=== PATIENT | female | born 1995 | race African-American/Black ===

== ENCOUNTER 2022-09-14 01:47 | Emergency (ER) | payer OTHER ==
[~2022-09-14] VITALS: Ht 167.6 cm; Wt 82.1 kg
[2022-09-14] MEDS ORDERED: GNP28TAB2 PO (01:56)
[2022-09-14 02:46] LABS: BASO % 0.5 % (0.0-1.0); EOS # 0.1 10^3/uL (0.0-0.5); EOS % 1.5 % (0.0-3.0); HEMATOCRIT 35.9 % (36.0-47.0); HEMOGLOBIN 11.8 g/dl (12.0-15.5); LYMPH # 2.3 10^3/uL (1.5-5.0); LYMPH % 26.7 % (24.0-44.0); MEAN CORPUSCULAR HEMOGLOBIN 27.7 pg (27.0-33.0); MEAN CORPUSCULAR HGB CONC 32.9 g/dl (32.0-36.5); MEAN CORPUSCULAR VOLUME 84.3 fl (80.0-96.0); MONO # 0.5 10^3/uL (0.0-0.8); MONO % 5.3 % (2.0-8.0); NEUTROPHILS # 5.6 10^3/uL (1.5-8.5); NEUTROPHILS % 65.8 % (36.0-66.0); PLATELET COUNT, AUTOMATED 344 10^3/uL (150-450); RED BLOOD COUNT 4.26 10^6/uL (4.00-5.40); WHITE BLOOD COUNT 8.5 10^3/uL (4.0-10.0)
[2022-09-14 03:12] LABS: BLOOD UREA NITROGEN 7 MG/DL (9-23); CALCIUM LEVEL 9.4 MG/DL (8.5-10.1); CARBON DIOXIDE LEVEL 23 MMOL/L (20-31); CHLORIDE LEVEL 103 MMOL/L (98-107); CREATININE FOR GFR 0.62 MG/DL (0.55-1.30); GLOMERULAR FILTRATION RATE > 60.0 (>60); GLUCOSE, FASTING 88 MG/DL (60-100); POTASSIUM SERUM 3.9 MMOL/L (3.5-5.1); SODIUM LEVEL 134 MMOL/L (136-145)
[2022-09-14 03:26] LABS: HCG, SERUM QUANTITATIVE 74053.6 MIU/ML (<4.2)
[2022-09-14 08:45] VITALS: BP 116/70
== END 2022-09-14 08:50 | disposition home or self-care (01) ==
LOC: M ED 01:47
DX: O34.10 Maternal care for benign tumor of corpus uteri, unspecified trimester (principal); O20.0 Threatened abortion; Z3A.10 10 weeks gestation of pregnancy; Z79.84 Long term (current) use of oral hypoglycemic drugs

== ENCOUNTER 2022-10-11 16:21 | Inpatient (IN) | payer OTHER ==
[~2022-10-11] VITALS: Ht 167.6 cm; Wt 81.3 kg
[~2022-10-11 16:21] MED LIST: GNP28TAB2 PO
[2022-10-11 17:35] LABS: BASO % 0.3 % (0.0-1.0); EOS # 0.1 10^3/uL (0.0-0.5); EOS % 0.4 % (0.0-3.0); HEMATOCRIT 34.3 % (36.0-47.0); HEMOGLOBIN 11.2 g/dl (12.0-15.5); LYMPH # 2.4 10^3/uL (1.5-5.0); LYMPH % 16.8 % (24.0-44.0); MEAN CORPUSCULAR HEMOGLOBIN 27.9 pg (27.0-33.0); MEAN CORPUSCULAR HGB CONC 32.7 g/dl (32.0-36.5); MEAN CORPUSCULAR VOLUME 85.3 fl (80.0-96.0); MONO # 0.9 10^3/uL (0.0-0.8); MONO % 6.3 % (2.0-8.0); NEUTROPHILS # 10.8 10^3/uL (1.5-8.5); NEUTROPHILS % 75.7 % (36.0-66.0); PLATELET COUNT, AUTOMATED 388 10^3/uL (150-450); RED BLOOD COUNT 4.02 10^6/uL (4.00-5.40); WHITE BLOOD COUNT 14.2 10^3/uL (4.0-10.0)
[2022-10-11] MEDS ORDERED: MORPHINE 2 MG/ML 1ML VIAL IV ONE (17:50)
[2022-10-11 17:55] LABS: BLOOD UREA NITROGEN 7 MG/DL (9-23); CALCIUM LEVEL 9.2 MG/DL (8.5-10.1); CARBON DIOXIDE LEVEL 21 MMOL/L (20-31); CHLORIDE LEVEL 102 MMOL/L (98-107); CREATININE FOR GFR 0.58 MG/DL (0.55-1.30); GLOMERULAR FILTRATION RATE > 60.0 (>60); GLUCOSE, FASTING 106 MG/DL (60-100); POTASSIUM SERUM 3.6 MMOL/L (3.5-5.1); SODIUM LEVEL 134 MMOL/L (136-145)
[2022-10-11] MEDS ORDERED: CEFEPIME HCL 2 GM in D5W MINI-BAG PLUS 50 ML IV ONE (19:05)
[2022-10-11] MEDS ORDERED: metroNIDAZOLE 500 MG in IV 1 EA IV ONE (19:05)
[2022-10-11] MEDS ORDERED: NS 1,000 ML IV ONE (19:05)
[2022-10-11] MEDS ORDERED: HOME MED LIST COMPLETE! XX SCH (19:40)
[2022-10-11] MEDS ORDERED: MIDAZOLAM INJ 2MG/2ML VIAL As Ordered ONE (20:08)
[2022-10-11] MEDS ORDERED: ROCURONIUM BROMIDE 50MG/5ML VIAL As Ordered ONE (20:08)
[2022-10-11] MEDS ORDERED: fentaNYL 100 MCG/2 ML INJECTION As Ordered ONE ×2 (20:08→21:47)
[2022-10-11] MEDS ORDERED: propofoL 200 MG/20 ML VIAL As Ordered ONE (20:08)
[2022-10-11] MEDS ORDERED: LIDOCAINE 2% 100MG/5ML SDV (FOR ANES.) As Ordered ONE (20:08)
[2022-10-11] MEDS ORDERED: ONDANSETRON 4MG 2ML VIAL As Ordered ONE (20:08)
[2022-10-11] MEDS ORDERED: METHYLERGONOVINE MALEATE 0.2MG/ML 1ML VIAL As Ordered ONE (20:09)
[2022-10-11] MEDS ORDERED: CARBOPROST TROMETHAMINE 250 MCG/ML AMP As Ordered ONE (20:23)
[2022-10-11] MEDS ORDERED: LIDOCAINE 1% MDV 20ML VIAL As Ordered ONE (20:59)
[2022-10-11] MEDS ORDERED: ACETAMINOPHEN 1000MG 100ML IV BAG As Ordered ONE (21:08)
[2022-10-11] MEDS ORDERED: PHENYLephrine 500MCG 5ML (100MCG/ML) SYRINGE As Ordered ONE (21:25)
[2022-10-11] MEDS ORDERED: VASOPRESSIN INJ 20UNITS/ML 1ML VIAL As Ordered ONE (21:34)
[2022-10-11] MEDS ORDERED: HYDROMORPHONE HCL 0.5 MG/ 0.5 ML SYRINGE IV PRN (22:15)
[2022-10-11] MEDS ORDERED: LR 1,000 ML IV SCH ×2 (22:15→22:40)
[2022-10-11] MEDS ORDERED: METOCLOPRAMIDE INJ 10MG/2ML VIAL IV PRN (22:15)
[2022-10-11] MEDS ORDERED: fentaNYL 100 MCG/2 ML INJECTION IV PRN (22:15)
[2022-10-11] MEDS ORDERED: oxyCODONE 5MG TAB PO PRN (22:15)
[2022-10-11] MEDS ORDERED: PROMETHAZINE 25MG/ML 1ML VIAL IV PRN ×2 (22:15→23:20)
[2022-10-11] MEDS ORDERED: ONDANSETRON 4MG 2ML VIAL IV PRN ×2 (22:15→23:20)
[2022-10-11 23:21] VITALS: BP 129/66
[2022-10-11] MEDS: PIPERACILLIN/TAZOBACTAM SOD 4.5 GM in D5W MINI-BAG PLUS 50 ML IV SCH (23:58)
[2022-10-12] VITALS (9 sets, daily range): BP systolic 99–126; BP diastolic 51–68
[2022-10-12] MEDS: oxyCODONE 5MG TAB PO PRN ×2 (02:42→08:45)
[2022-10-12 03:49] LABS: BASO # 0.1 10^3/uL (0.0-0.2); BASO % 0.2 % (0.0-1.0); HEMATOCRIT 30.3 % (36.0-47.0); HEMOGLOBIN 10.4 g/dl (12.0-15.5); LYMPH # 1.1 10^3/uL (1.5-5.0); LYMPH % 3.7 % (24.0-44.0); MEAN CORPUSCULAR HGB CONC 34.3 g/dl (32.0-36.5); MEAN CORPUSCULAR VOLUME 84.4 fl (80.0-96.0); MONO # 0.2 10^3/uL (0.0-0.8); MONO % 0.6 % (2.0-8.0); NEUTROPHILS # 28.4 10^3/uL (1.5-8.5); NEUTROPHILS % 94.9 % (36.0-66.0); RED BLOOD COUNT 3.59 10^6/uL (4.00-5.40); WHITE BLOOD COUNT 29.9 10^3/uL (4.0-10.0)
[2022-10-12 03:55] LABS: PLATELET COUNT, AUTOMATED 279 10^3/uL (150-450)
[2022-10-12 04:16] LABS: ALBUMIN 2.7 G/DL (3.2-5.2); ALKALINE PHOSPHATASE 131 U/L (46-116); ALT/SGPT 51 U/L (7.0-40); AST/SGOT 27 U/L (<34); BILIRUBIN,TOTAL 0.9 MG/DL (0.3-1.2); BLOOD UREA NITROGEN 5 MG/DL (9-23); CALCIUM LEVEL 8.5 MG/DL (8.5-10.1); CARBON DIOXIDE LEVEL 21 MMOL/L (20-31); CHLORIDE LEVEL 103 MMOL/L (98-107); CREATININE FOR GFR 0.57 MG/DL (0.55-1.30); GLOMERULAR FILTRATION RATE > 60.0 (>60); GLUCOSE, FASTING 114 MG/DL (60-100); POTASSIUM SERUM 4.1 MMOL/L (3.5-5.1); SODIUM LEVEL 132 MMOL/L (136-145); TOTAL PROTEIN 5.7 G/DL (5.7-8.2)
[2022-10-12] MEDS: METHYLERGONOVINE MALEATE 0.2 MG TAB PO SCH ×3 (04:17→16:11)
[2022-10-12] MEDS: PIPERACILLIN/TAZOBACTAM SOD 4.5 GM in D5W MINI-BAG PLUS 50 ML IV SCH ×3 (05:47→17:42)
[2022-10-12] MEDS: ACETAMINOPHEN 500 MG TAB PO PRN (05:47)
[2022-10-12] MEDS: KETOROLAC 30 MG/ML 1ML VIAL IV SCH ×3 (08:46→20:14)
[2022-10-12] MEDS: zolPIDEM TARTRATE 5 MG TAB PO SCH (18:21)
[2022-10-12] MEDS ORDERED: zolPIDEM TARTRATE 5 MG TAB PO ONE (18:25)
[2022-10-13] MEDS: ACETAMINOPHEN 500 MG TAB PO PRN ×2 (00:12→08:49)
[2022-10-13] MEDS: PIPERACILLIN/TAZOBACTAM SOD 4.5 GM in D5W MINI-BAG PLUS 50 ML IV SCH ×4 (00:12→17:56)
[2022-10-13 02:00] VITALS: BP 108/54
[2022-10-13] MEDS: KETOROLAC 30 MG/ML 1ML VIAL IV SCH (02:32)
[2022-10-13 06:00] VITALS: BP 102/50
[2022-10-13] MEDS ORDERED: MAALOX 30 ML SUSP *UDC PO PRN (08:20)
[2022-10-13 08:25] LABS: MEAN CORPUSCULAR HGB CONC 33.8 g/dl (32.0-36.5); PLATELET COUNT, AUTOMATED 257 10^3/uL (150-450); RED BLOOD COUNT 2.79 10^6/uL (4.00-5.40); WHITE BLOOD COUNT 15.6 10^3/uL (4.0-10.0)
[2022-10-13 08:27] LABS: HEMOGLOBIN 8.1 g/dl (12.0-15.5)
[2022-10-13] MEDS ORDERED: IBUPROFEN 600MG TAB PO PRN (08:30)
[2022-10-13] MEDS: MIRALAX *UNIT DOSE* 17GM PACKET PO SCH (08:48)
[2022-10-13] MEDS ORDERED: INFLUENZA QUADRIVALENT PF VACCINE 0.5ML SYRINGE IM.IMMUN ONE (09:00)
[2022-10-13 10:00] VITALS: BP 100/49
[2022-10-13 14:09] VITALS: BP 98/52
[2022-10-13 18:04] VITALS: BP 109/55
[2022-10-13] MEDS: zolPIDEM TARTRATE 5 MG TAB PO SCH (21:00)
[2022-10-13 22:00] VITALS: BP 115/60
[2022-10-14] MEDS: PIPERACILLIN/TAZOBACTAM SOD 4.5 GM in D5W MINI-BAG PLUS 50 ML IV SCH ×2 (00:17→05:49)
[2022-10-14 01:45] VITALS: BP 117/68
[2022-10-14 06:00] VITALS: BP 100/60
[2022-10-14] MEDS ORDERED: CLINDAMYCIN 150MG CAPSULE PO SCH ×3 (06:00→12:00)
[2022-10-14 06:47] LABS: BASO # 0.1 10^3/uL (0.0-0.2); BASO % 0.4 % (0.0-1.0); EOS # 0.1 10^3/uL (0.0-0.5); EOS % 1.1 % (0.0-3.0); HEMATOCRIT 24.1 % (36.0-47.0); HEMOGLOBIN 7.8 g/dl (12.0-15.5); LYMPH # 2.8 10^3/uL (1.5-5.0); LYMPH % 24.8 % (24.0-44.0); MEAN CORPUSCULAR HEMOGLOBIN 28.2 pg (27.0-33.0); MEAN CORPUSCULAR HGB CONC 32.4 g/dl (32.0-36.5); MONO # 0.6 10^3/uL (0.0-0.8); MONO % 4.9 % (2.0-8.0); NEUTROPHILS # 7.8 10^3/uL (1.5-8.5); NEUTROPHILS % 68.2 % (36.0-66.0); PLATELET COUNT, AUTOMATED 276 10^3/uL (150-450); RED BLOOD COUNT 2.77 10^6/uL (4.00-5.40); WHITE BLOOD COUNT 11.4 10^3/uL (4.0-10.0)
[2022-10-14] MEDS: MIRALAX *UNIT DOSE* 17GM PACKET PO SCH (08:25)
[2022-10-14 10:00] VITALS: BP 111/74
[2022-10-14 18:00] VITALS: BP 116/72
== END 2022-10-14 18:15 | disposition home or self-care (01) | DRG 770 ==
LOC: M ED 16:21 → M ED INP 20:02 → M OBS 23:26
PROVIDERS: ADMIT Obstetrics & Gynecology; ATTEND Obstetrics & Gynecology
PROC: 30233N1 Transfusion of Nonautologous Red Blood Cells into Peripheral Vein, Percutaneous Approach (ICD-10-PCS; 2022-10-11)
PROC: 10D17ZZ Extraction of Products of Conception, Retained, Via Natural or Artificial Opening (ICD-10-PCS; principal; 2022-10-11 19:20)
DX: O03.37 Sepsis following incomplete spontaneous abortion (principal); Z3A.12 12 weeks gestation of pregnancy; O03.1 Delayed or excessive hemorrhage following incomplete spontaneous abortion; B95.4 Other streptococcus as the cause of diseases classified elsewhere

== ENCOUNTER 2022-12-03 15:55 | Emergency (ER) | payer OTHER ==
[~2022-12-03] VITALS: Ht 167.6 cm; Wt 85.0 kg
[2022-12-03 16:39] LABS: BASO # 0.1 10^3/uL (0.0-0.2); BASO % 0.5 % (0.0-1.0); EOS # 0.2 10^3/uL (0.0-0.5); EOS % 1.9 % (0.0-3.0); HEMATOCRIT 39.1 % (36.0-47.0); HEMOGLOBIN 12.8 g/dl (12.0-15.5); LYMPH # 2.2 10^3/uL (1.5-5.0); LYMPH % 23.5 % (24.0-44.0); MEAN CORPUSCULAR HEMOGLOBIN 27.9 pg (27.0-33.0); MEAN CORPUSCULAR HGB CONC 32.7 g/dl (32.0-36.5); MEAN CORPUSCULAR VOLUME 85.2 fl (80.0-96.0); MONO # 0.5 10^3/uL (0.0-0.8); MONO % 5.4 % (2.0-8.0); NEUTROPHILS # 6.4 10^3/uL (1.5-8.5); NEUTROPHILS % 68.5 % (36.0-66.0); PLATELET COUNT, AUTOMATED 373 10^3/uL (150-450); RED BLOOD COUNT 4.59 10^6/uL (4.00-5.40); WHITE BLOOD COUNT 9.3 10^3/uL (4.0-10.0)
[2022-12-03 17:01] LABS: HCG, SERUM QUALITATIVE NEGATIVE (NEGATIVE)
[2022-12-03] MEDS ORDERED: KETOROLAC 30 MG/ML 1ML VIAL IV ONE (18:10)
[2022-12-03] MEDS ORDERED: NS 1,000 ML IV ONE (18:10)
[2022-12-03 19:11] LABS: MAGNESIUM LEVEL 1.8 MG/DL (1.8-2.4)
[2022-12-03 19:18] LABS: FREE THYROXINE INDEX 4.3 % (1.3-4.8); T UPTAKE 37.4 % (22.5-37.0); THYROID STIMULATING HORMONE 1.475 uIU/ML (0.55-4.78); THYROXINE (T4) 11.4 UG/DL (4.5-10.9)
[2022-12-03] MEDS ORDERED: TRANEXAMIC ACID 650MG TABLET (LYSTEDA) PO ONE (20:20)
[2022-12-03] MEDS ORDERED: ASPE4PAD TOP (20:37)
[2022-12-03] MEDS ORDERED: METH-1165 PO (20:37)
[2022-12-03] MEDS ORDERED: TRAN650T PO (20:37)
[2022-12-03] MEDS ORDERED: MULTTAB20 PO (20:43)
[2022-12-03] MEDS ORDERED: HYDR1CRE30 TOP (20:43)
[2022-12-03 20:47] VITALS: BP 133/89; TEMP 98; O2SAT 100
== END 2022-12-03 20:59 | disposition home or self-care (01) ==
LOC: M ED 15:55
DX: N93.8 Other specified abnormal uterine and vaginal bleeding (principal); M54.50 Low back pain, unspecified
CPT/HCPCS: 76830; 76856; 80047; 81001; 83735; 84436; 84443; 84479; 84703; 85025; 86850; 86900; 86901; 87086; 93976; 96361; 96374; 99284; J1885

== ENCOUNTER 2024-07-09 22:23 | Emergency (ER) | payer OTHER ==
[~2024-07-09] VITALS: Ht 160 cm; Wt 93.8 kg
[~2024-07-09 22:23] MED LIST changes: +ASPE4PAD TOP; +HYDR1CRE30 TOP; +METH-1165 PO; +MULTTAB20 PO; +TRAN650T PO
[2024-07-09 22:27] VITALS: TEMP 97.4
[2024-07-09] MEDS: diphenhydrAMINE 50MG CAP PO ONE (22:47)
[2024-07-10] MEDS ORDERED: CHOLPOW39 XX (02:37)
[2024-07-10] MEDS ORDERED: PEPC1TAB5 PO (03:54)
[2024-07-10] MEDS ORDERED: BENA25CA4 PO (03:54)
[2024-07-10] MEDS ORDERED: PRED20TA PO (03:54)
[2024-07-10] MEDS: diphenhydrAMINE 25MG CAP PO ONE (04:24)
[2024-07-10] MEDS: FAMOTIDINE 20 MG TAB PO ONE (04:24)
[2024-07-10] MEDS: predniSONE 20 MG TAB PO ONE (04:24)
[2024-07-10 04:33] VITALS: BP 133/86; O2SAT 97
== END 2024-07-10 04:35 | disposition home or self-care (01) ==
LOC: M ED 07-10 02:21
DX: T78.40XA Allergy, unspecified, initial encounter (principal); Z79.899 Other long term (current) drug therapy
CPT/HCPCS: 99284; J7512